=== PATIENT | male | born 1960 | race Caucasian/White ===

== ENCOUNTER 2019-08-30 01:32 | Emergency (ER) | payer MEDICARE, MEDICAID ==
[~2019-08-30] VITALS: Ht 182.9 cm; Wt 70.5 kg
[~2019-08-30 01:32] MED LIST: BAYER CHEWABLE81 MG PO; FLUPHENAZINE HC10 MG PO; MOBIC7.5 MG PO; PLAVIX75 MG PO; PRINIVIL20 MG PO; TIAZAC/CARDIZE120 MG PO
[2019-08-30 01:47] VITALS: Ht 182.9 cm; Wt 70.5 kg
[2019-08-30] MEDS ORDERED: HYDROCODON-ACE1 EAC7 PO (04:11)
[2019-08-30 04:30] VITALS: BP 110/77
== END 2019-08-30 04:30 | disposition home or self-care (01) ==
LOC: D.ER 01:32
DX: S01.01XA Laceration without foreign body of scalp, initial encounter (principal); W19.XXXA Unspecified fall, initial encounter; M54.5 Low back pain; I10 Essential (primary) hypertension; F17.210 Nicotine dependence, cigarettes, uncomplicated

== ENCOUNTER 2021-02-24 12:16 | Emergency (ER) | payer MEDICARE, MEDICAID ==
[~2021-02-24] VITALS: Ht 182.9 cm; Wt 72.7 kg
[~2021-02-24 12:16] MED LIST changes: +HYDROCODON-ACE1 EAC7 PO
[2021-02-24 12:36] VITALS: BP 125/96; Ht 182.9 cm; Wt 72.7 kg
[2021-02-24 13:06] LABS: BILIRUBIN NEGATIVE (NEGATIVE); KETONE NEGATIVE (NEGATIVE); NITRITE NEGATIVE (NEGATIVE); UROBILINOGEN NORMAL mg/dL (< 2)
[2021-02-24 13:15] LABS: UDS - AMPHET NEGATIVE QUAL (NEGATIVE); UDS - BARB NEGATIVE QUAL (NEGATIVE); UDS - BENZO NEGATIVE QUAL (NEGATIVE); UDS - COCAINE NEGATIVE QUAL (NEGATIVE); UDS - OPIATE NEGATIVE QUAL (NEGATIVE); UDS - PCP NEGATIVE QUAL (NEGATIVE); UDS - THC POSITIVE QUAL (NEGATIVE)
[2021-02-24 13:15] LABS: BASOPHILS 0.5 % (0-2); EOSINOPHILS 1.1 % (0-7); HEMATOCRIT 48.8 % (42.0-54.0); HEMOGLOBIN 17.1 g/dL (13.5-17.5); IMMATURE GRANULOCYTES 0.3 % (0-5); LYMPHOCYTE ABS# 2.29 10x3/uL (1.32-3.57); LYMPHOCYTES 21.7 % (15-50); MCH 33.3 pg (26.0-34.0); MCV 94.9 fL (80.0-100.0); MEAN PLATELET VOLUME 10.1 fL (7.4-10.4); MONOCYTES 6.7 % (2-11); NEUTROPHIL ABS# 7.34 10x3/uL (1.78-5.38); NEUTROPHILS 69.7 % (40-80); PLATELET COUNT 208 10x3/uL (130-400); RBC 5.14 10x6/uL (4.20-6.10); RDW 12.4 % (11.5-14.5); WBC 10.5 10x3/uL (4.8-10.8)
[2021-02-24 13:24] LABS: ANION GAP 16.3 mmol/L (8-16); CALCIUM 9.5 mg/dL (8.5-10.1); CARBON DIOXIDE 26.7 mmol/L (21.0-32.0); CREATININE - SERUM 1.4 mg/dL (0.6-1.3)
[2021-02-24 13:29] LABS: ALBUMIN 3.7 g/dL (3.4-5.0); BILIRUBIN - TOTAL 0.51 mg/dL (0.2-1.3); MAGNESIUM - SERUM 1.8 mg/dL (1.8-2.4); PROTEIN - SERUM 7.5 g/dL (6.4-8.2)
== END 2021-02-24 18:04 ==
LOC: D.ER 12:16
PROVIDERS: Emergency Medicine
DX: F20.0 Paranoid schizophrenia (principal); R45.850 Homicidal ideations; I10 Essential (primary) hypertension; Z72.0 Tobacco use